=== PATIENT | female | born 1975 | race Caucasian/White ===

== ENCOUNTER 2017-04-23 01:26 | Emergency (ER) | payer OTHER ==
[~2017-04-23] VITALS: Ht 162.6 cm; Wt 68.5 kg
[2017-04-23 01:42] VITALS: Ht 162.6 cm; Wt 68.5 kg
--- NOTE | 2017-04-23 02:35 | ERD ---
ER Documentation Chief Complaint Date/Time DATE: 04/23/17 Chief Complaint Left shoulder pain HPI The patient is a 41-year-old female who presents to the Emergency Department with complaint of left shoulder pain status post ground-level fall. The patient reports that she was chasing her dog outside when she accidentally tripped and fell directly onto her left shoulder. He now has significant pain localized to the left shoulder, which she currently rates as 10 out of 10. She has not yet taken any medication for pain relief. Pain is worse with any attempted range of motion or palpation. She denies any alleviating factors. She denies any numbness , paresthesias or weakness of the distal extremity. After the patient's injury EMS were called, and on scene determined patient to have a shoulder dislocation. Therefore, both EMS and the patient's attempted to reduce the patient's shoulder, without success. She continues have pain, and range of motion limited secondary to pain. No other complaints at this time. ROS All systems reviewed and are negative except as per history of present illness. Medications Home Meds Active Scripts Ibuprofen* (Motrin*) 600 Mg Tab, 600 MG PO Q6, #30 TAB Prov:MARIE LANG PA-C 04/23/17 Hydrocodone/Acetaminophen (Piqua 5-325 Tablet) 1 Each Tablet, 1 EACH PO Q6, #12 TAB Prov:MARIE LANG PA-C 04/23/17 Allergies Allergies: Coded Allergies: No Known Allergy (Unverified , 04/23/17) Physical Exam Vitals Vital Signs Date Time Temp Pulse Resp B/P Pulse Ox O2 Delivery O2 Flow Rate FiO2 04/23/17 01:42 97.8 88 20 153/90 98 Physical Exam Const: Well-development, well-nourished female. Head: Atraumatic Eyes: Normal Conjunctiva ENT: Normal External Ears, Nose and Mouth. Neck: Supple. No posterior midline tenderness. Full range of motion. Resp: Clear to auscultation bilaterally Cardio: Regular rate and rhythm. Abd: Soft, non tender, non distended. Skin: No petechiae or rashes Back: No midline or flank tenderness Ext: No clubbing, cyanosis or edema. Left arm is flexed and held against chest. Tenderness to palpation over the left shoulder and proximal/lateral humeral region, with increased discomfort with attempted range of motion. No wrist drop. No crepitus. Normal deltoid sensation. Distal extremities neurovascularly intact. Radial, median, ulnar and axillary nerve distribution intact. No tenderness to palpation over clavicle. No step offs. No crepitus. No skin tenting. Radial and ulnar pulses 2+. Capillary refill is less than 2 seconds. Neur: Awake and alert Psych: Normal Mood and Affect Results 24 hrs Current Medications Medications (Trade) Dose Ordered Sig/Juan Carlos Route PRN Reason Start Time Stop Time Status Last Admin Dose Admin Acetaminophen/ Hydrocodone Bitart (Piqua (10325)) 1 tab ONCE ONCE PO 04/23/17 03:00 04/23/17 03:01 DC 04/23/17 02:41 Procedures/MDM DIAGNOSTIC TESTS AND INTERPRETATION: PROCEDURE: XR left shoulder. CLINICAL INDICATION: Pain TECHNIQUE: AP and Y views of the left shoulder were performed. COMPARISON: None. FINDINGS:There is a comminuted oblique fracture of the proximal to mid shaft of the left humerus with posterior angulation of the main distal fragment. No left shoulder dislocation is seen. IMPRESSION: There is a comminuted oblique fracture of the proximal to mid shaft of the left humerus with posterior angulation of the main distal fragment. No left shoulder dislocation is seen. .Jose Nugent MD, MD Date Time Electronically viewed and signed by .Jose Nugent MD, MD on 04/23/2017 02:59 SHOULDER IMMOBILIZER APPLICATION: INDICATION: Comminuted oblique fracture of the proximal to mid shaft of the left humerus with posterior angulation of the main distal fragment LOCATION: Right upper extremity. NEUROVASCULAR EXAM: The patients extremity was neurovascularly intact prior to and status post shoulder immobilizer placement. MEDICAL DECISION MAKING: This is a 41-year-old female presenting to the Emergency Department with left shoulder pain after falling onto her left upper extremity. The patient had tenderness localized to the left shoulder and lateral humeral region on physical examination, but otherwise vital signs are stable. Differential diagnosis includes, but is not limited to, soft tissue injury, sprain, strain, dislocation, subluxation, AC separation, bursitis, contusion, fracture, vascular injury, peripheral nerve injury, compartment syndrome. Compartments are soft, with no evidence of compartment syndrome. No pain out of proportion to examination. Distal extremity neurovascularly intact. X-ray imaging revealed a comminuted oblique fracture of the proximal to mid shaft of the left humerus with posterior angulation of the main distal fragment. No left shoulder dislocation is seen. Her condition improved during her stay after the administration of Piqua. On reevaluation, the patient reports no new complaints. A shoulder immobilizer was placed to the patient's left upper extremity. Upon my review and interpretation of the patient's presentation, clinical data, and overall ER course I believe the patient's symptoms are most consistent with comminuted oblique fracture of the left humerus. At this time the patient is in stable condition and therefore she can be discharged home with strict return precautions for signs of acute deterioration of condition. The patient is given a prescription for ibuprofen and Piqua for pain control. She is instructed on further outpatient pain control methods, including rest, icing and elevation. She is advised to follow up with an energy conservation specialist for reevaluation and further management within 2-3 days, or return to the ER sooner for worsening symptoms. I shared my medical decision making, plan and the diagnostic results with the patient at length and in great detail, and they verbally understand and agree with the plan for further observation and care as an outpatient. At the time of discharge all questions were answered. Departure Diagnosis: Primary Impression: Closed comminuted left humeral fracture Condition: Stable Patient Instructions: Fracture, Shoulder Additional Instructions: Follow up with your primary medical provider and an energy conservation specialist within 2-3 days for reevaluation and further management. Return to the ED sooner for any new or worsening symptoms. Depending on your insurance, you may require an authorization to an energy conservation specialist from your primary medical provider. Please call your primary medical provider's office tomorrow to inform them of your situation and diagnosis, and that you need an urgent orthopedic referral. Additionally, please call your insurance company as well, and inform them. MARIE LANG PA-C Apr 23, 2017 02:35
--- NOTE | 2017-04-23 02:59 | RADRPT ---
PROCEDURE: XR left shoulder. CLINICAL INDICATION: Dislocation TECHNIQUE: AP and Y views of the left shoulder were performed. COMPARISON: None. FINDINGS: There is a comminuted oblique fracture of the proximal to mid shaft of the left humerus with posteri or angulation of the main distal fragment. No left shoulder dislocation is seen. IMPRESSION: There is a comminuted oblique fracture of the proximal to mid shaft of the left humerus with posteri or angulation of the main distal fragment. No left shoulder dislocation is seen. RPTAT: HJES .Jose Nugent MD, MD Date Time Electronically viewed and signed by .Jose Nugent MD, MD on 04/23/2017 02:59 .S/
[2017-04-23] MEDS ORDERED: HYDROCODONE/APAP (10/325) TAB PO ONE (03:00)
[2017-04-23] MEDS ORDERED: IBUP-1542 PO (03:02)
[2017-04-23] MEDS ORDERED: HYDR-906 PO (03:02)
== END 2017-04-23 04:16 | disposition home or self-care (01) ==
LOC: E/R 01:26
DX: S42.352A Displaced comminuted fracture of shaft of humerus, left arm, initial encounter for closed fracture (principal); W01.0XXA Fall on same level from slipping, tripping and stumbling without subsequent striking against object, initial encounter; Y92.9 Unspecified place or not applicable
CPT/HCPCS: 73030